=== PATIENT | female | born 1990 | race American Indian/Alaskan Native ===

== ENCOUNTER 2016-09-06 13:36 | Emergency (ER) | payer OTHER ==
[2016-09-06 15:12] VITALS: BP 119/71
[2016-09-06] MEDS: ROCEPHIN IM ONE (16:35)
[2016-09-06] MEDS: XYLOCAINE 1% MPF 5 mL INFILTRATI ONE (16:36)
[2016-09-06] MEDS: TORADOL IM ONE (16:36)
--- NOTE | 2016-09-06 17:23 | Emergency Department Report ---
Entered by TOM HERNANDEZ, acting as scribe for STEVE DUNBAR PA. ED ENT HPI - General Chief complaint: Sore Throat Stated complaint: SWOLLEN TONSILS Time Seen by Provider: 09/06/16 15:39 Source: patient Mode of arrival: Ambulatory Limitations: No Limitations - History of Present Illness Initial comments: 26 year old female with a PMHx of chronic tonsillitis presents to the ED c/o a swollen tonsils that began 3 days ago. Associated symptoms include sore throat, headaches, cough, nausea, vomiting, fever, and chills, but she denies diarrhea, sick contacts, neck pain, chest pain, and SOB. Reports last acute infection was in August 2016. Notes she is scheduled to get for a tonsillectomy at [place] on . [facility] 09/04/2016. NKDA. DUARTE complaint: sore throat Onset/Timin -: days(s) Location: throat Severity: moderate Quality: aching Consistency: constant Improves with: none (took Aleve with no relief) Worsens with: none Associated Symptoms: fever, cough, sore throat, other (nausea, vomiting, headache, and chills). denies: rhinorrhea - Related Data Previous Rx's Medication Instructions Recorded Last Taken Type Promethazine [Phenergan] 25 mg PO Q6H PRN #10 tablet 03/28/14 Unknown Rx Amoxicillin [Amoxicillin TAB] 875 mg PO BID #20 tablet 09/06/16 Unknown Rx Ibuprofen [Motrin] 600 mg PO Q8H PRN #30 tablet 09/06/16 Unknown Rx Allergies Allergy/AdvReac Type Severity Reaction Status Date / Time No Known Allergies Allergy Unverified 03/28/14 13:08 ED Dental HPI - General Chief complaint: Sore Throat Stated complaint: SWOLLEN TONSILS Time Seen by Provider: 09/06/16 15:39 Source: patient Mode of arrival: Ambulatory Limitations: No Limitations - History of Present Illness complaint: sore throat Onset/Timin -: days(s) Severity: moderate Quality: aching Consistency: constant Improves with: none (took Aleve with no relief) Worsens with: none Dental Associated Symptons: Yes: Headache, Sore Throat, Fever. No: Earache, Gum Swelling - Related Data Previous Rx's Medication Instructions Recorded Last Taken Type Promethazine [Phenergan] 25 mg PO Q6H PRN #10 tablet 03/28/14 Unknown Rx Amoxicillin [Amoxicillin TAB] 875 mg PO BID #20 tablet 09/06/16 Unknown Rx Ibuprofen [Motrin] 600 mg PO Q8H PRN #30 tablet 09/06/16 Unknown Rx Allergies Allergy/AdvReac Type Severity Reaction Status Date / Time No Known Allergies Allergy Unverified 03/28/14 13:08 ED Review of Systems Comment: All other systems reviewed and negative Constitutional: chills, fever Eyes: denies: eye pain ENT: throat pain. denies: ear pain, congestion, other (rhinorrhea) Respiratory: cough. denies: orthopnea, shortness of breath, SOB with exertion, SOB at rest, stridor Cardiovascular: denies: chest pain, dyspnea on exertion, orthopnea Gastrointestinal: nausea, vomiting. denies: abdominal pain, diarrhea Musculoskeletal: denies: back pain, other (neck pain) Skin: denies: rash Neurological: headache ED Past Medical Hx - Past Medical History Previous Medical History?: No - Surgical History Past Surgical History?: No - Social History Smoking Status: Never Smoker Substance Use Type: None - Medications Home Medications: Home Medications Medication Instructions Recorded Confirmed Last Taken Type Promethazine [Phenergan] 25 mg PO Q6H PRN #10 tablet 03/28/14 Unknown Rx Amoxicillin [Amoxicillin TAB] 875 mg PO BID #20 tablet 09/06/16 Unknown Rx Ibuprofen [Motrin] 600 mg PO Q8H PRN #30 tablet 09/06/16 Unknown Rx ED Physical Exam - General Limitations: No Limitations General appearance: alert, in no apparent distress - Head Head exam: Present: atraumatic, normocephalic - Eye Eye exam: Present: normal appearance, EOMI Pupils: Present: normal accommodation - ENT ENT exam: Present: normal exam, mucous membranes moist, normal external ear exam - Expanded ENT Exam Expanded Ear exam: Present: normal external inspection Mouth exam: Present: normal external inspection Teeth exam: Present: normal inspection Throat exam: Positive: tonsillar erythema, tonsillomegaly, tonsillar exudate, other - Neck Neck exam: Present: normal inspection, full ROM. Absent: tenderness, lymphadenopathy - Respiratory Respiratory exam: Present: normal lung sounds bilaterally. Absent: respiratory distress, wheezes, rales, rhonchi, stridor - Cardiovascular Cardiovascular Exam: Present: regular rate, normal rhythm. Absent: systolic murmur, diastolic murmur, rubs, gallop - GI/Abdominal GI/Abdominal exam: Present: soft. Absent: distended, tenderness, guarding, rebound - Extremities Exam Extremities exam: Present: normal inspection, full ROM - Back Exam Back exam: Present: normal inspection, full ROM - Neurological Exam Neurological exam: Present: alert, oriented X3 - Psychiatric Psychiatric exam: Present: normal affect, normal mood - Skin Skin exam: Present: warm, dry, intact. Absent: rash ED Course Vital Signs 09/06/16 09/06/16 15:07 16:36 Temperature 99.5 F Pulse Rate 111 H Respiratory 18 18 Rate Blood Pressure 119/71 O2 Sat by Pulse 100 Oximetry ED Medical Decision Making - Medical Decision Making Patient was evaluated in fast track area of ED by this provider. Patient presented with swollen tonsils for 3 days. In the ED, the patient will be given shots of Toradol, Rocephin, and Solu-Medrol. Patient is in no acute distress at this time. She will be discharged home with a prescription for antibiotics. She is instructed to follow up with PCP if her symptoms persist. Patient verbalized understanding. She is encouraged to return to the emergency room for any worsening symptoms. ED Disposition Clinical Impression: Sorethroat Disposition: DISCHARGED TO HOME OR SELFCARE Is pt being admited?: No Does the pt Need Aspirin: No Condition: Stable Instructions: Pharyngitis (ED) Additional Instructions: Please drink plenty of fluids. He did take Tylenol or Motrin for pain. Please take antibiotics as prescribed. Return to the emergency room with your spike a temperature difficulty breathing Prescriptions: Amoxicillin [Amoxicillin TAB] 875 mg PO BID #20 tablet Ibuprofen [Motrin] 600 mg PO Q8H PRN #30 tablet PRN Reason: Pain Referrals: PRIMARY CARE,MD [Primary Care Provider] - 3-5 Days Forms: Work/School Release Form(ED) This documentation as recorded by the MARY escobar JASMINE,accurately reflects the service I personally performed and the decisions made by , STEVE DUNBAR PA.
[2016-09-06] MEDS ORDERED: TYLENOL ONE (17:24)
[2016-09-06] MEDS: TYLENOL PO ONE ×2 (17:33→17:35)
== END 2016-09-06 18:10 | disposition home or self-care (01) ==
LOC: ED 13:36
DX: J02.9 Acute pharyngitis, unspecified (principal)
CPT/HCPCS: 87116; 87430; 96372; 99283; J0696; J1885; J2920

== ENCOUNTER 2016-12-28 12:24 | Emergency (ER) | payer SELFPAY ==
[2016-12-28 12:59] LABS: Basophils % (Auto) 0.5 % (0.0-1.8); Eosinophils % (Auto) 0.8 % (0.0-4.3); Hematocrit 36.9 % (30.3-42.9); Hemoglobin 12.3 gm/dl (10.1-14.3); Mean Corpuscular HGB Conc 34 % (30-34); Mean Corpuscular Hemoglobin 28 pg (28-32); Mean Corpuscular Volume 82 fl (79-97); Platelet Count 335 K/mm3 (140-440); Red Blood Count 4.48 M/mm3 (3.65-5.03); Red Cell Distribution Width 16.5 % (13.2-15.2); White Blood Count 8.3 K/mm3 (4.5-11.0)
[2016-12-28 13:03] LABS: Bacteria,Urine 1+ /HPF (Negative); Bilirubin,Urine NEG (Negative); Blood,Urine LG (Negative); Ketones,Urine NEG (Negative); Leukocyte Esterase,Urine TR (Negative); Mucus,Urine 1+ /HPF; Nitrite,Urine NEG (Negative)
[2016-12-28 13:06] LABS: RBC,Urine > 182.0 /HPF (0.0-6.0)
--- NOTE | 2016-12-28 13:15 | Emergency Department Report ---
HPI - General Chief Complaint: Urogenital-Female Time Seen by Provider: 12/28/16 13:03 - HPI HPI: This is a 26 year-old female presents to the emergency department with complaint of abnormal periods and her cramping. Patient says that she has been having to periods each month for the past 3 months. She has some lower abdominal/pelvic cramping as well as a moderate amount of vaginal bleeding. She denies any past medical history. She has not taken anything for her symptoms prior to presentation. She does not have a primary care physician or F[facility]ER TECHNICIAN. No recent travel or sick contacts at home. ED Past Medical Hx - Past Medical History Previous Medical History?: No - Surgical History Past Surgical History?: No - Social History Smoking Status: Never Smoker Substance Use Type: None - Medications Home Medications: Home Medications Medication Instructions Recorded Confirmed Last Taken Type Promethazine [Phenergan] 25 mg PO Q6H PRN #10 tablet 03/28/14 Unknown Rx Amoxicillin [Amoxicillin TAB] 875 mg PO BID #20 tablet 09/06/16 Unknown Rx Fluconazole [Diflucan TAB] 200 mg PO QDAY #2 tablet 09/06/16 Unknown Rx Ibuprofen [Motrin] 600 mg PO Q8H PRN #30 tablet 09/06/16 Unknown Rx ED Review of Systems ROS: Stated complaint: CRAMPING Other details as noted in HPI Comment: All other systems reviewed and negative Constitutional: denies: chills, fever Eyes: denies: eye pain, eye discharge, vision change ENT: denies: ear pain, throat pain Respiratory: denies: cough, shortness of breath, wheezing Cardiovascular: denies: chest pain, palpitations Gastrointestinal: abdominal pain (pelvic cramping). denies: vomiting Genitourinary: other (vaginal bleeding). denies: urgency, dysuria, discharge Musculoskeletal: denies: back pain, joint swelling, arthralgia Skin: denies: rash, lesions Neurological: denies: headache, weakness, paresthesias Physical Exam - Physical Exam Vital Signs: Vital Signs 12/28/16 12:27 Temperature 99.7 F H Pulse Rate 77 Respiratory 16 Rate Blood Pressure 119/86 O2 Sat by Pulse 99 Oximetry Physical Exam: GENERAL: The patient is well-developed well-nourished. HENT: Normocephalic. Atraumatic. Patient has moist mucous membranes. EYES: Extraocular motions are intact. Pupils equal reactive to light bilaterally. NECK: Supple. Trachea is midline. CHEST/LUNGS: Clear to auscultation. There is no respiratory distress noted. HEART/CARDIOVASCULAR: Regular. There is no tachycardia. There is no gallop rub or murmur. ABDOMEN: Abdomen is soft, nontender. Patient has normal bowel sounds. There is no abdominal distention. SKIN: Skin is warm and dry. NEURO: The patient is awake, alert, and oriented. The patient is cooperative. The patient has no focal neurologic deficits. The patient has normal speech. MUSCULOSKELETAL: There is no tenderness or deformity. There is no limitation range of motion. There is no evidence of acute injury. ED Course Vital Signs 12/28/16 12:27 Temperature 99.7 F H Pulse Rate 77 Respiratory 16 Rate Blood Pressure 119/86 O2 Sat by Pulse 99 Oximetry ED Medical Decision Making - Lab Data Result diagrams: 12/28/16 12:44 12/28/16 12:44 - Radiology Data Radiology results: report reviewed Transvaginal/pelvic Doppler ultrasound is a normal examination. - Medical Decision Making 26-year-old female presents with some abnormal menstrual cycles with about 2 periods per month over the past 3 months. Labs are unremarkable and do not show any significant urinary tract infection or . Ultrasound was done that was read as a normal examination. Patient most likely has dysfunctional uterine bleeding and was given multiple referrals for FIBER TECHNICIAN - Differential Diagnosis , UTI, fibroids, malignancy Critical Care Time: No Critical care attestation.: If time is entered above; I have spent that time in minutes in the direct care of this critically ill patient, excluding procedure time. ED Disposition Clinical Impression: Dysfunctional uterine bleeding, Pelvic cramping Disposition: DC-01 TO HOME OR SELFCARE Is pt being admited?: No Condition: Stable Instructions: Dysfunctional Uterine Bleeding (ED) Additional Instructions: Please follow up with an FIBER TECHNICIAN in the next few days. Return to the emergency Department with any worsening of your symptoms or any acute distress. Referrals: PRIMARY CARE [Primary Care Provider] - 3-5 Days [facility] [Provider Group] - 3-5 Days [facility] [Provider Group] - 3-5 Days [facility] [Provider Group] - 3-5 Days Forms: Work/School Release Form(ED) Time of Disposition: 15:03
[2016-12-28 13:31] LABS: Alanine Aminotransferase 11 units/L (7-56); Albumin/Globulin Ratio 1.4 %; Alkaline Phosphatase 57 units/L (35-129); Anion Gap 15 mmol/L; BUN/Creatinine Ratio 23.33; Blood Urea Nitrogen 14 mg/dL (7-17); Calcium 8.7 mg/dL (8.4-10.2); Carbon Dioxide 25 mmol/L (22-30); Chloride 105.1 mmol/L (98-107); Glucose 83 mg/dL (65-100); Lipase 36 units/L (13-60); Potassium 4.2 mmol/L (3.6-5.0); Sodium 141 mmol/L (137-145); Total Protein 6.8 g/dL (6.3-8.2)
--- NOTE | 2016-12-28 14:59 | Ultrasound Report ---
ULTRASOUND PELVIS DUPLEX DOPPLER COMPLETE ULTRASOUND TRANSVAGINAL HISTORY: Pelvic pain. TECHNIQUE: Transabdominal and transvaginal ultrasound with spectral doppler interrogation. Longitudinal and transverse real-time images of the pelvis demonstrate that the uterus and ovaries are present and in a normal location. They are of normal echogenicity, contour and size. No pathologic changes in the adjacent tissues are noted. Spectral Doppler waveforms demonstrate symmetric arterial flow to the ovaries. IMPRESSION: Unremarkable transabdominal and transvaginal pelvic ultrasounds.
[2016-12-28 15:28] VITALS: BP 120/70
== END 2016-12-28 15:15 | disposition home or self-care (01) ==
LOC: ED 12:24
DX: N93.8 Other specified abnormal uterine and vaginal bleeding (principal); R10.2 Pelvic and perineal pain
CPT/HCPCS: 36415; 76830; 80053; 81001; 81025; 83690; 85025; 93975; 99284

== ENCOUNTER 2018-07-23 10:22 | Emergency (ER) | payer SELFPAY ==
[2018-07-23 10:31] VITALS: BP 132/78
--- NOTE | 2018-07-23 11:27 | XRay Report ---
ROUTINE CHEST, TWO VIEWS: HISTORY: chest pain. The trachea, heart, mediastinal contour, lung thompson and bony thorax are unremarkable. No change since 03/10/18. IMPRESSION: Unremarkable chest x-ray.
--- NOTE | 2018-07-23 11:44 | Emergency Department Report ---
Minor Respiratory - HPI Chief Complaint: Chest Pain Stated Complaint: CHEST PAIN /SOB Time Seen by Provider: 07/23/18 11:32 Duration: 2 Days Pain Location: Chest Severity: mild Minor Respiratory: Yes Rhinorrhea, Yes Able to Tolerate Fluids, Yes Cough (dry), Yes Chest Pain (tightness), Yes Shortness of Breath, No Sore Throat, No Ear Pain, No Sick Contacts, No Hemoptysis, No Fever ED Review of Systems ROS: Stated complaint: CHEST PAIN /SOB Other details as noted in HPI Comment: All other systems reviewed and negative ED Past Medical Hx - Past Medical History Previous Medical History?: No - Surgical History Past Surgical History?: No - Social History Smoking Status: Current Every Day Smoker Substance Use Type: None - Medications Home Medications: Home Medications Medication Instructions Recorded Confirmed Last Taken Type Albuterol Sulfate [Ventolin HFA] 2 puff IH Q4H PRN #1 hfa.aer.ad 03/10/18 Unknown Rx Fluticasone [Flonase] 1 spray NS QDAY #1 bottle 03/10/18 Unknown Rx predniSONE [Deltasone] 20 mg PO DAILY #5 tablet 03/10/18 Unknown Rx Famotidine [Pepcid] 20 mg PO BID #30 tablet 04/15/18 Unknown Rx Ondansetron [Zofran Odt] 4 mg PO Q8HR PRN #12 tab.rapdis 04/15/18 Unknown Rx ALBUTEROL Inhaler (OR & NICU) 2 puff IH QID PRN #1 inhalation 07/23/18 Unknown Rx [ProAir HFA Inhaler] guaiFENesin/CODEINE [Robitussin AC] 5 ml PO TID PRN #100 oral.liqd 07/23/18 Unknown Rx predniSONE [Deltasone] 20 mg PO QDAY #5 tab 07/23/18 Unknown Rx Minor Respiratory Exam - Exam General: Vital signs noted. No distress. Alert and acting appropriately. HEENT: Yes Moist Mucous Membranes, No Pharyngeal Erythema, No Pharyngeal Exudates, No Rhinorrhea, No Conjuctival Injection, No Frontal Tenderness, No Maxillary Tenderness Ear: Neither TM Bulge, Neither TM Erythema, Neither EAC Pain, Neither EAC Discharge Neck: Yes Supple, No Adenopathy Lungs: Yes Good Air Exchange, Yes Cough, No Wheezes, No Ronchi, No Stridor, No Labored Respirations, No Retractions, No Use of Accessory Muscles, No Other Abnormal Lung Sounds Heart: Yes Regular, No Murmur Abdomen: Yes Normal Bowel Sounds, No Tenderness, No Peritoneal Signs Skin: No Rash, No Edema Neurologic: Alert and oriented, no deficits. Musculoskeletal: Unremarkable. ED Course Vital Signs 07/23/18 10:28 Temperature 97.6 F Pulse Rate 76 Respiratory 16 Rate Blood Pressure 132/78 O2 Sat by Pulse 100 Oximetry ED Medical Decision Making - EKG Data -: EKG Interpreted by Me EKG shows normal: sinus rhythm, axis, intervals, QRS complexes, ST-T waves Rate: normal - EKG Data Interpretation: normal EKG - Radiology Data Radiology results: report reviewed (CXR WNL) - Medical Decision Making Patient with upper respiratory infection/acute bronchitis-type symptoms. Patient will be treated withsymptomatic relief will be discharged home. Critical care attestation.: If time is entered above; I have spent that time in minutes in the direct care of this critically ill patient, excluding procedure time. ED Disposition Clinical Impression: Acute bronchitis Disposition: DC-01 TO HOME OR SELFCARE Is pt being admited?: No Does the pt Need Aspirin: No Condition: Stable Instructions: Acute Bronchitis (ED) Referrals: ALICIA ALEXIS MD [Primary Care Provider] - 3-5 Days Time of Disposition: 11:43
== END 2018-07-23 11:50 | disposition home or self-care (01) ==
LOC: ED 10:22
DX: J20.9 Acute bronchitis, unspecified (principal); F17.200 Nicotine dependence, unspecified, uncomplicated
CPT/HCPCS: 71046; 93005; 93010; 99283

== ENCOUNTER 2018-12-06 18:19 | Emergency (ER) | payer SELFPAY ==
--- NOTE | 2018-12-06 18:30 | Event Note ---
ED Screening Note Date of service: 12/06/18 Time: 18:28 ED Screening Note: This is a 28 y.o. F. that presents to the ER with left shoulder pain x 1 week. LMP 11/30/2018 This initial assessment/diagnostic orders/clinical plan/treatment(s) is/are subject to change based on patients health status, clinical progression and re- assessment by fellow clinical providers in the ED. Further treatment and workup at subsequent clinical providers discretion. Patient/guardian urged not to elope from the ED as their condition may be serious if not clinically assessed and managed. Initial orders include: XR or left shoulder
--- NOTE | 2018-12-06 19:19 | XRay Report ---
LEFT SHOULDER 3 VIEW(S) INDICATION / CLINICAL INFORMATION: anterior shoulder pain COMPARISON: None available. FINDINGS: BONES / JOINT(S): No acute fracture or subluxation. No significant arthritis. SOFT TISSUES: No significant abnormality. ADDITIONAL FINDINGS: None. Signer Name: Spencer Thurston MD Signed: 12/06/2018 7:15 PM Workstation Name: [id number]
--- NOTE | 2018-12-06 20:18 | Emergency Department Report ---
Upper Extremity - HPI Chief Complaint: Extremity Injury, Upper Stated Complaint: L SHOULDER PAIN Time Seen by Provider: 12/06/18 18:28 Upper Extremity: Left Shoulder Occurred When: >5 Days Mechanism: Hit with Object Severity: mild Symptoms: Yes Pain with Movement, No Deformity, No Limited Range of Movement, No Numbness, No Weakness, No Swelling, No Bruising/Ecchymosis, No Laceration or Abrasion Other History: 28-year-old -Japanese female, comes to the emergency room complaining of left shoulder pain for 1 week. Patient reports that she hit her left shoulder on a door while at work. Patient reports that she has been taking Tylenol last dose was 2 days ago a 500 mg. Patient reports his pain with certain movements. ED Review of Systems ROS: Stated complaint: L SHOULDER PAIN Other details as noted in HPI Comment: All other systems reviewed and negative ED Past Medical Hx - Past Medical History Previous Medical History?: Yes Hx Asthma: Yes - Surgical History Past Surgical History?: No - Social History Smoking Status: Never Smoker Substance Use Type: Alcohol - Medications Home Medications: Home Medications Medication Instructions Recorded Confirmed Last Taken Type Albuterol Sulfate [Ventolin HFA] 2 puff IH Q4H PRN #1 hfa.aer.ad 03/10/18 Unknown Rx Fluticasone [Flonase] 1 spray NS QDAY #1 bottle 03/10/18 Unknown Rx predniSONE [Deltasone] 20 mg PO DAILY #5 tablet 03/10/18 Unknown Rx Famotidine [Pepcid] 20 mg PO BID #30 tablet 04/15/18 Unknown Rx Ondansetron [Zofran Odt] 4 mg PO Q8HR PRN #12 tab.rapdis 04/15/18 Unknown Rx ALBUTEROL Inhaler (OR & NICU) 2 puff IH QID PRN #1 inhalation 07/23/18 Unknown Rx [ProAir HFA Inhaler] guaiFENesin/CODEINE [Robitussin AC] 5 ml PO TID PRN #100 oral.liqd 07/23/18 Unknown Rx predniSONE [Deltasone] 20 mg PO QDAY #5 tab 07/23/18 Unknown Rx ALBUTEROL Inhaler(NF) [VENTOLIN 1 puff IH Q4H PRN #1 inha 09/14/18 Unknown Rx Inhaler(NF)] methylPREDNISolone [Medrol] 4 mg PO DAILY #21 tab.ds.pk 09/14/18 Unknown Rx Ibuprofen [Motrin 600 MG tab] 600 mg PO Q8H PRN #20 tablet 12/06/18 Unknown Rx Upper Extremity Exam - Exam General: Vital signs noted. No distress. Alert and acting appropriately. Patient is Texting upon my arrival into the room. Head and Torso: No HEENT Abnormality, No Neck Tenderness, No Chest/Lungs Abnormality, No Abdominal Tenderness, No Back Tenderness Shoulder Exam: Yes Normal Range of Motion in Shoulder, No Shoulder Tenderness, No Clavicle Tenderness, No Shoulder Deformity, No AC Joint Tenderness Arm Exam: No Arm/Humerus Tenderness, No Arm Deformity Elbow: No Elbow Tenderness, No Normal Range of Motion in Elbow, No Elbow Deformity Forearm: No Forearm Tenderness, No Forearm Deformity, No Pain with Pronation, No Pain with Supination Wrist: Yes Normal ROM in Wrist, No Wrist Tenderness, No Wrist Deformity, No Snuffbox Tenderness, No Pain with Axial Thumb Compression Hand: Yes Normal ROM in Digit(s), No Hand Tenderness, No Hand Deformity, No Digit Tenderness, No Digit(s) Deformity, No Tendon Dysfunction CMS Exam: No Broken Skin, No Normal Distal Pulses, No Normal Capillary Refill, No Normal Distal Sensation ED Course Vital Signs 12/06/18 18:29 Temperature 98.5 F Pulse Rate 78 Respiratory 18 Rate Blood Pressure 114/82 O2 Sat by Pulse 100 Oximetry ED Medical Decision Making - Radiology Data Radiology results: report reviewed Patient: LYNDA BAUER MR#: [id number] : 1990 Acct:[id number] Age/Sex: 28 / F ADM Date: 12/06/18 Loc: ED Attending Dr: Ordering Physician: ROQUE SHAW Date of Service: 12/06/18 Procedure(s): XR shoulder 2+V LT Accession Number(s): [id number] cc: ROQUE SHAW Fluoro Time In Minutes: LEFT SHOULDER 3 VIEW(S) INDICATION / CLINICAL INFORMATION: anterior shoulder pain COMPARISON: None available. FINDINGS: BONES / JOINT(S): No acute fracture or subluxation. No significant arthritis. SOFT TISSUES: No significant abnormality. ADDITIONAL FINDINGS: None. Signer Name: Spencer Thurston MD Signed: 12/06/2018 7:15 PM Workstation Name: [email or web address] Transcribed By: EL Dictated By: Spencer Thurston MD Electronically Authenticated By: Spencer Thurston MD Signed Date/Time: 12/06/181914 DD/ 13 TD/TT: - Medical Decision Making 28-year-old -Japanese female, comes to the emergency room complaining of left shoulder pain for 1 week. Patient reports that she hit her left shoulder on a door while at work. Patient reports that she has been taking Tylenol last dose was 2 days ago a 500 mg. Patient reports his pain with certain movements. X-ray of left shoulder shows no acute abnormalities acute fractures or subluxation. Patient be discharged home on ibuprofen and to follow up with her primary care provider for symptoms persist or gets worse. Critical care attestation.: If time is entered above; I have spent that time in minutes in the direct care of this critically ill patient, excluding procedure time. ED Disposition Clinical Impression: Shoulder pain, left Qualifiers: Chronicity: acute Qualified Code(s): M25.512 - Pain in left shoulder Disposition: DC-01 TO HOME OR SELFCARE Is pt being admited?: No Does the pt Need Aspirin: No Condition: Stable Instructions: Arthralgia (ED) Additional Instructions: X-rays were negative for any acute findings. Take ibuprofen as needed for pain management. Increase her water intake while taking ibuprofen. Symptoms persisted as well as follow-up with the primary care provider. Prescriptions: Ibuprofen [Motrin 600 MG tab] 600 mg PO Q8H PRN #20 tablet PRN Reason: Pain Referrals: ALICIA ALEXIS MD [Primary Care Provider] - 3-5 Days Forms: Work/School Release Form(ED)
[2018-12-06 20:38] VITALS: BP 138/91
== END 2018-12-06 20:33 | disposition home or self-care (01) ==
LOC: ED 18:19
DX: M25.512 Pain in left shoulder (principal); J45.909 Unspecified asthma, uncomplicated; Z79.899 Other long term (current) drug therapy; W22.8XXA Striking against or struck by other objects, initial encounter; Y93.89 Activity, other specified; Y92.89 Other specified places as the place of occurrence of the external cause; Y99.0 Civilian activity done for income or pay

== ENCOUNTER 2019-07-23 20:14 | Emergency (ER) | payer OTHER ==
[2019-07-23 20:20] VITALS: BP 112/71
[2019-07-23] MEDS ORDERED: IBUPROFEN 600 MG TAB PO ONE ×2 (22:37→22:39)
--- NOTE | 2019-07-24 00:20 | Emergency Department Report ---
- General Chief Complaint: Sore Throat Stated Complaint: SORE THROAT FEVER Time Seen by Provider: 07/23/19 23:50 Source: patient Mode of arrival: Ambulatory Limitations: No Limitations - History of Present Illness MD Complaint: sore throat - Related Data Previous Rx's Medication Instructions Recorded Last Taken Type Albuterol Sulfate [Ventolin HFA] 2 puff IH Q4H PRN #1 hfa.aer.ad 03/10/18 Unknown Rx Fluticasone [Flonase] 1 spray NS QDAY #1 bottle 03/10/18 Unknown Rx predniSONE [Deltasone] 20 mg PO DAILY #5 tablet 03/10/18 Unknown Rx Famotidine [Pepcid] 20 mg PO BID #30 tablet 04/15/18 Unknown Rx Ondansetron [Zofran Odt] 4 mg PO Q8HR PRN #12 tab.rapdis 04/15/18 Unknown Rx Albuterol INH(or & Nicu Only) 2 puff IH QID PRN #1 inhalation 07/23/18 Unknown Rx [ProAir HFA Inhaler] guaiFENesin/CODEINE [Robitussin AC] 5 ml PO TID PRN #100 oral.liqd 07/23/18 Unknown Rx predniSONE [Deltasone] 20 mg PO QDAY #5 tab 07/23/18 Unknown Rx ALBUTEROL Inhaler(NF) [VENTOLIN 1 puff IH Q4H PRN #1 inha 09/14/18 Unknown Rx Inhaler(NF)] methylPREDNISolone [Medrol] 4 mg PO DAILY #21 tab.ds.pk 09/14/18 Unknown Rx Ibuprofen [Motrin 600 MG tab] 600 mg PO Q8H PRN #20 tablet 12/06/18 Unknown Rx Amoxicillin/Potassium Clav 1 each PO BID #20 tablet 07/24/19 Unknown Rx [Augmentin 875-125 Tablet] Chlorhexidine Mouthwash [Peridex] 15 ml MM BID #473 bottle 07/24/19 Unknown Rx Lidocaine Viscous 2% 5 ml MM Q3H PRN #120 udc 07/24/19 Unknown Rx Allergies Allergy/AdvReac Type Severity Reaction Status Date / Time No Known Allergies Allergy Unverified 03/28/14 13:08 ED Review of Systems ROS: Stated complaint: SORE THROAT FEVER Other details as noted in HPI Comment: All other systems reviewed and negative ED Past Medical Hx - Past Medical History Previous Medical History?: Yes Hx Asthma: Yes - Surgical History Past Surgical History?: No - Social History Smoking Status: Never Smoker Substance Use Type: None - Medications Home Medications: Home Medications Medication Instructions Recorded Confirmed Last Taken Type Albuterol Sulfate [Ventolin HFA] 2 puff IH Q4H PRN #1 hfa.aer.ad 03/10/18 Unknown Rx Fluticasone [Flonase] 1 spray NS QDAY #1 bottle 03/10/18 Unknown Rx predniSONE [Deltasone] 20 mg PO DAILY #5 tablet 03/10/18 Unknown Rx Famotidine [Pepcid] 20 mg PO BID #30 tablet 04/15/18 Unknown Rx Ondansetron [Zofran Odt] 4 mg PO Q8HR PRN #12 tab.rapdis 04/15/18 Unknown Rx Albuterol INH(or & Nicu Only) 2 puff IH QID PRN #1 inhalation 07/23/18 Unknown Rx [ProAir HFA Inhaler] guaiFENesin/CODEINE [Robitussin AC] 5 ml PO TID PRN #100 oral.liqd 07/23/18 Unknown Rx predniSONE [Deltasone] 20 mg PO QDAY #5 tab 07/23/18 Unknown Rx ALBUTEROL Inhaler(NF) [VENTOLIN 1 puff IH Q4H PRN #1 inha 09/14/18 Unknown Rx Inhaler(NF)] methylPREDNISolone [Medrol] 4 mg PO DAILY #21 tab.ds.pk 09/14/18 Unknown Rx Ibuprofen [Motrin 600 MG tab] 600 mg PO Q8H PRN #20 tablet 12/06/18 Unknown Rx Amoxicillin/Potassium Clav 1 each PO BID #20 tablet 07/24/19 Unknown Rx [Augmentin 875-125 Tablet] Chlorhexidine Mouthwash [Peridex] 15 ml MM BID #473 bottle 07/24/19 Unknown Rx Lidocaine Viscous 2% 5 ml MM Q3H PRN #120 udc 07/24/19 Unknown Rx ED Physical Exam - General Limitations: No Limitations General appearance: alert, in no apparent distress - Head Head exam: Present: atraumatic, normocephalic - Eye Eye exam: Present: normal appearance, PERRL, EOMI Pupils: Present: normal accommodation - ENT ENT exam: Present: mucous membranes moist, other (Pharynx is erythematous swollen with some scant exudate.) - Neck Neck exam: Present: normal inspection, full ROM, lymphadenopathy. Absent: meningismus, thyromegaly - Respiratory Respiratory exam: Present: normal lung sounds bilaterally. Absent: respiratory distress, wheezes, rales, chest wall tenderness, accessory muscle use, decreased breath sounds - Cardiovascular Cardiovascular Exam: Present: regular rate, normal rhythm. Absent: systolic murmur, diastolic murmur, rubs, gallop - GI/Abdominal GI/Abdominal exam: Present: soft, normal bowel sounds - Extremities Exam Extremities exam: Present: normal inspection, full ROM, normal capillary refill - Back Exam Back exam: Present: normal inspection. Absent: CVA tenderness (R), CVA tenderness (L) - Neurological Exam Neurological exam: Present: alert, oriented X3, CN II-XII intact, normal gait - Psychiatric Psychiatric exam: Present: normal affect, normal mood - Skin Skin exam: Present: warm, dry, intact, normal color. Absent: rash, diaphoretic, erythema, pallor, abrasion ED Course Vital Signs 07/23/19 07/23/19 20:20 22:44 Temperature 102.4 F H Pulse Rate 116 H Respiratory 22 18 Rate Blood Pressure 112/71 O2 Sat by Pulse 96 Oximetry Critical care attestation.: If time is entered above; I have spent that time in minutes in the direct care of this critically ill patient, excluding procedure time. ED Disposition Clinical Impression: Exudative pharyngitis Disposition: DC-01 TO HOME OR SELFCARE Is pt being admited?: No Does the pt Need Aspirin: No Condition: Stable Instructions: Pharyngitis (ED) Prescriptions: Amoxicillin/Potassium Clav [Augmentin 875-125 Tablet] 1 each PO BID #20 tablet Lidocaine Viscous 2% 5 ml MM Q3H PRN #120 udc PRN Reason: Pain, Moderate (4-6) Chlorhexidine Mouthwash [Peridex] 15 ml MM BID #473 bottle Referrals: TONY JIMENEZ [Other] - 3-5 Days
== END 2019-07-24 00:35 | disposition home or self-care (01) ==
LOC: ED 20:14
DX: J02.9 Acute pharyngitis, unspecified (principal); J45.909 Unspecified asthma, uncomplicated
CPT/HCPCS: 87116; 87430; 99283

== ENCOUNTER 2019-09-03 22:07 | Emergency (ER) | payer OTHER ==
--- NOTE | 2019-09-03 23:18 | Emergency Department Report ---
ED Female HPI - General Chief complaint: Vaginal Bleeding Stated complaint: PELVIC PAIN Time Seen by Provider: 09/03/19 22:57 Source: patient Mode of arrival: Ambulatory Limitations: No Limitations - History of Present Illness Initial comments: 29-year-old -[place] female presents to the emergency room complaining of pelvic pain with her menstruation. Patient states that she has had 2 menstrual periods in July. Patient states her last normal period was 07/28/2019. Patient states that she took Tylenol in Advil just prior to arrival. Patient has no past medical history currently takes no medications on a daily basis and has no known drug allergies MD Complaint: vaginal bleeding, pelvic pain -: This afternoon Location: suprapubic Severity scale (0 -10): 9 Quality: cramping, sharp Consistency: constant Improves with: none Worsens with: menstrual period Are you Now?: No Last Menstrual Period: 07/28/19 EDC: 05/03/20 Associated Symptoms: vaginal bleeding. denies: nausea/vomiting, fever/chills - Related Data Previous Rx's Medication Instructions Recorded Last Taken Type Albuterol Sulfate [Ventolin HFA] 2 puff IH Q4H PRN #1 hfa.aer.ad 03/10/18 Unknown Rx Fluticasone [Flonase] 1 spray NS QDAY #1 bottle 03/10/18 Unknown Rx predniSONE [Deltasone] 20 mg PO DAILY #5 tablet 03/10/18 Unknown Rx Famotidine [Pepcid] 20 mg PO BID #30 tablet 04/15/18 Unknown Rx Ondansetron [Zofran Odt] 4 mg PO Q8HR PRN #12 tab.rapdis 04/15/18 Unknown Rx Albuterol INH(or & Nicu Only) 2 puff IH QID PRN #1 inhalation 07/23/18 Unknown Rx [ProAir HFA Inhaler] guaiFENesin/CODEINE [Robitussin AC] 5 ml PO TID PRN #100 oral.liqd 07/23/18 Unknown Rx predniSONE [Deltasone] 20 mg PO QDAY #5 tab 07/23/18 Unknown Rx ALBUTEROL Inhaler(NF) [VENTOLIN 1 puff IH Q4H PRN #1 inha 09/14/18 Unknown Rx Inhaler(NF)] methylPREDNISolone [Medrol] 4 mg PO DAILY #21 tab.ds.pk 09/14/18 Unknown Rx Ibuprofen [Motrin 600 MG tab] 600 mg PO Q8H PRN #20 tablet 12/06/18 Unknown Rx Amoxicillin/Potassium Clav 1 each PO BID #20 tablet 07/24/19 Unknown Rx [Augmentin 875-125 Tablet] Chlorhexidine Mouthwash [Peridex] 15 ml MM BID #473 bottle 07/24/19 Unknown Rx Lidocaine Viscous 2% 5 ml MM Q3H PRN #120 udc 07/24/19 Unknown Rx Ibuprofen [Motrin 800 MG tab] 800 mg PO Q8HR PRN #30 tablet 09/03/19 Unknown Rx Allergies Allergy/AdvReac Type Severity Reaction Status Date / Time No Known Allergies Allergy Verified 09/03/19 22:22 ED Review of Systems ROS: Stated complaint: PELVIC PAIN Other details as noted in HPI Comment: All other systems reviewed and negative Genitourinary: abnormal menses ED Past Medical Hx - Past Medical History Previous Medical History?: No Hx Asthma: Yes - Surgical History Past Surgical History?: No - Social History Smoking Status: Never Smoker Substance Use Type: None - Medications Home Medications: Home Medications Medication Instructions Recorded Confirmed Last Taken Type Albuterol Sulfate [Ventolin HFA] 2 puff IH Q4H PRN #1 hfa.aer.ad 03/10/18 Unknown Rx Fluticasone [Flonase] 1 spray NS QDAY #1 bottle 03/10/18 Unknown Rx predniSONE [Deltasone] 20 mg PO DAILY #5 tablet 03/10/18 Unknown Rx Famotidine [Pepcid] 20 mg PO BID #30 tablet 04/15/18 Unknown Rx Ondansetron [Zofran Odt] 4 mg PO Q8HR PRN #12 tab.rapdis 04/15/18 Unknown Rx Albuterol INH(or & Nicu Only) 2 puff IH QID PRN #1 inhalation 07/23/18 Unknown Rx [ProAir HFA Inhaler] guaiFENesin/CODEINE [Robitussin AC] 5 ml PO TID PRN #100 oral.liqd 07/23/18 Unknown Rx predniSONE [Deltasone] 20 mg PO QDAY #5 tab 07/23/18 Unknown Rx ALBUTEROL Inhaler(NF) [VENTOLIN 1 puff IH Q4H PRN #1 inha 09/14/18 Unknown Rx Inhaler(NF)] methylPREDNISolone [Medrol] 4 mg PO DAILY #21 tab.ds.pk 09/14/18 Unknown Rx Ibuprofen [Motrin 600 MG tab] 600 mg PO Q8H PRN #20 tablet 12/06/18 Unknown Rx Amoxicillin/Potassium Clav 1 each PO BID #20 tablet 07/24/19 Unknown Rx [Augmentin 875-125 Tablet] Chlorhexidine Mouthwash [Peridex] 15 ml MM BID #473 bottle 07/24/19 Unknown Rx Lidocaine Viscous 2% 5 ml MM Q3H PRN #120 udc 07/24/19 Unknown Rx Ibuprofen [Motrin 800 MG tab] 800 mg PO Q8HR PRN #30 tablet 09/03/19 Unknown Rx ED Physical Exam - General Limitations: No Limitations General appearance: alert, in distress - Head Head exam: Present: atraumatic, normocephalic - Eye Eye exam: Present: normal appearance - ENT ENT exam: Present: mucous membranes moist - Neck Neck exam: Present: normal inspection - Respiratory Respiratory exam: Present: normal lung sounds bilaterally. Absent: respiratory distress - Cardiovascular Cardiovascular Exam: Present: regular rate, normal rhythm. Absent: systolic murmur, diastolic murmur, rubs, gallop - GI/Abdominal GI/Abdominal exam: Present: soft, normal bowel sounds - Extremities Exam Extremities exam: Present: normal inspection, full ROM - Neurological Exam Neurological exam: Present: alert, oriented X3, normal gait - Psychiatric Psychiatric exam: Present: normal affect, normal mood - Skin Skin exam: Present: warm, dry, intact, normal color. Absent: rash ED Course Vital Signs 09/03/19 22:21 Temperature 98.6 F Pulse Rate 90 Respiratory 20 Rate Blood Pressure 125/85 O2 Sat by Pulse 100 Oximetry Critical care attestation.: If time is entered above; I have spent that time in minutes in the direct care of this critically ill patient, excluding procedure time. ED Disposition Clinical Impression: Dysmenorrhea, Negative test Disposition: DC- TO HOME OR SELFCARE Is pt being admited?: No Does the pt Need Aspirin: No Condition: Stable Instructions: Dysmenorrhea (ED) Additional Instructions: Negative test negative urinalysis. Please take ibuprofen as needed for pain. You can use a warm heating pad to your pelvis area. Follow-up with your [facility]. Prescriptions: Ibuprofen [Motrin 800 MG tab] 800 mg PO Q8HR PRN #30 tablet PRN Reason: Pain , Severe (7-10) Referrals: PRIMARY CARE, [Primary Care Provider] - 3-5 Days [facility] [Provider Group] - 3-5 Days [facility] [Provider Group] - 3-5 Days [facility] [Provider Group] - 3-5 Days Forms: Work/School Release Form(ED)
[2019-09-03 23:38] LABS: HCG Qualitative,Urine Negative (Negative)
[2019-09-03 23:42] LABS: Bilirubin,Urine NEG (Negative); Blood,Urine LG (Negative); Color,Urine Yellow (Yellow); Mucus,Urine 3+ /HPF
[2019-09-04] VITALS: BP 120/82
== END 2019-09-03 23:59 | disposition home or self-care (01) ==
LOC: ED 22:07
DX: N94.6 Dysmenorrhea, unspecified (principal); J45.909 Unspecified asthma, uncomplicated; Z79.899 Other long term (current) drug therapy; Z32.02 Encounter for pregnancy test, result negative
CPT/HCPCS: 81001; 81025; 99283

== ENCOUNTER 2020-02-16 16:49 | Emergency (ER) | payer OTHER ==
[2020-02-16 17:32] VITALS: BP 134/80
--- NOTE | 2020-02-17 00:39 | Emergency Department Report ---
HPI - General Chief Complaint: Sore Throat Time Seen by Provider: 02/17/20 00:15 - HPI HPI: This is a 29-year-old -[place] female presents to the emergency department with complaint of a 1 day history of sore throat and enlarged tonsils. The patient also says that her tonsils have been bleeding. She has a history of recurrent strep pharyngitis. The patient did not check her temperature but says that she had a subjective fever earlier today. She took ibuprofen prior to arrival. She has a past medical history of asthma. No recent travel or sick contacts at home. ED Past Medical Hx - Past Medical History Previous Medical History?: Yes Hx Asthma: Yes - Social History Smoking Status: Never Smoker Substance Use Type: None - Medications Home Medications: Home Medications Medication Instructions Recorded Confirmed Last Taken Type Albuterol Sulfate [Ventolin HFA] 2 puff IH Q4H PRN #1 hfa.aer.ad 03/10/18 Unknown Rx Fluticasone [Flonase] 1 spray NS QDAY #1 bottle 03/10/18 Unknown Rx predniSONE [Deltasone] 20 mg PO DAILY #5 tablet 03/10/18 Unknown Rx Famotidine [Pepcid] 20 mg PO BID #30 tablet 04/15/18 Unknown Rx Ondansetron [Zofran Odt] 4 mg PO Q8HR PRN #12 tab.rapdis 04/15/18 Unknown Rx Albuterol Mdi (or & Nicu Only) 2 puff IH QID PRN #1 inhalation 07/23/18 Unknown Rx [ProAir HFA Inhaler] guaiFENesin/CODEINE [Robitussin AC] 5 ml PO TID PRN #100 oral.liqd 07/23/18 Unknown Rx predniSONE [Deltasone] 20 mg PO QDAY #5 tab 07/23/18 Unknown Rx ALBUTEROL Inhaler(NF) [VENTOLIN 1 puff IH Q4H PRN #1 inha 09/14/18 Unknown Rx Inhaler(NF)] methylPREDNISolone [Medrol] 4 mg PO DAILY #21 tab.ds.pk 09/14/18 Unknown Rx Ibuprofen [Motrin 600 MG tab] 600 mg PO Q8H PRN #20 tablet 12/06/18 Unknown Rx Amoxicillin/Potassium Clav 1 each PO BID #20 tablet 07/24/19 Unknown Rx [Augmentin 875-125 Tablet] Chlorhexidine Mouthwash [Peridex] 15 ml MM BID #473 bottle 07/24/19 Unknown Rx Lidocaine Viscous 2% 5 ml MM Q3H PRN #120 udc 07/24/19 Unknown Rx Ibuprofen [Motrin 800 MG tab] 800 mg PO Q8HR PRN #30 tablet 09/03/19 Unknown Rx Amoxicillin/K Clav Tab [Augmentin 1 each PO BID #14 tablet 02/17/20 Unknown Rx 875MG TAB] ED Review of Systems ROS: Stated complaint: THROAT PAIN Other details as noted in HPI Comment: All other systems reviewed and negative Constitutional: fever (subjective). denies: diaphoresis Eyes: denies: eye pain, vision change ENT: throat pain. denies: ear pain Respiratory: denies: cough, shortness of breath Cardiovascular: denies: chest pain Gastrointestinal: denies: abdominal pain Skin: denies: rash Neurological: denies: headache, weakness Physical Exam - Physical Exam Vital Signs: Vital Signs 02/16/20 17:28 Temperature 98.2 F Pulse Rate 93 H Respiratory 20 Rate Blood Pressure 134/80 [Right] Physical Exam: GENERAL: The patient is well-developed well-nourished. HENT: Normocephalic. Atraumatic. Patient has moist mucous membranes. There is bilateral tonsillar hypertrophy and erythema. No drooling or trismus. EYES: Extraocular motions are intact. NECK: Supple. Trachea is midline. CHEST/LUNGS: Clear to auscultation. There is no respiratory distress noted. HEART/CARDIOVASCULAR: Regular. There is no tachycardia. There is no murmur. SKIN: Skin is warm and dry. NEURO: The patient is awake, alert, and oriented. The patient is cooperative. Normal speech. MUSCULOSKELETAL: There is no tenderness or deformity. ED Course Vital Signs 02/16/20 17:28 Temperature 98.2 F Pulse Rate 93 H Respiratory 20 Rate Blood Pressure 134/80 [Right] ED Medical Decision Making - Medical Decision Making Patient presents with a 1 day history of enlarged tonsils and throat pain. There is also some subjective fever. Afebrile here but the patient did take ibuprofen prior to arrival. On examination she does have bilateral tonsillar hypertrophy and erythema. Positive for strep pharyngitis. Given a dose of Decadron here and first dose of Augmentin. She will get a prescription for Augmentin and has been given outpatient referrals for otolaryngology. She will return to the emergency department with any worsening of her symptoms or with any acute distress. Critical Care Time: No Critical care attestation.: If time is entered above; I have spent that time in minutes in the direct care of this critically ill patient, excluding procedure time. ED Disposition Clinical Impression: Strep pharyngitis Disposition: TO HOME OR SELFCARE Is pt being admited?: No Condition: Stable Instructions: Strep Throat (ED) Additional Instructions: Please follow-up with a primary care physician in the next few days. As you have requested, I have given you a referral for a few different local [facility] N[facility] Th[facility] (ENT) Physicians. Take the medications as prescribed. Do not share any food or drink with anyone. Return to the emergency department with any worsening of your symptoms or with any acute distress. Prescriptions: Amoxicillin/K Clav Tab [Augmentin 875MG TAB] 1 each PO BID #14 tablet Referrals: RYAN MCCORMACK MD [Staff Physician] - 3-5 Days LUCILA BRIONES MD [Staff Physician] - 3-5 Days AARON MILLER MD [Staff Physician] - 3-5 Days Time of Disposition: 00:54
[2020-02-17] MEDS ORDERED: AMOXICILLIN/K CLAV 875/125MG TAB PO ONE (00:52)
[2020-02-17] MEDS ORDERED: DEXAMETHASONE 4 MG TAB PO ONE (00:52)
== END 2020-02-17 01:36 | disposition home or self-care (01) ==
LOC: ED 16:49
DX: J02.0 Streptococcal pharyngitis (principal); J45.909 Unspecified asthma, uncomplicated; Z79.899 Other long term (current) drug therapy
CPT/HCPCS: 87430; 99283; J8540